=== PATIENT | female | born 1950 | race Caucasian/White ===

== ENCOUNTER → 2016-08-03 | Outpatient (CLI) | payer MEDICARE ==
--- NOTE | 2016-08-03 23:30 | WWHP ---
DATE OF DICTATION: 08/03/2016 CHIEF COMPLAINT: The patient is here for her routine gynecologic exam. HISTORY OF PRESENT ILLNESS: This is a 66-year-old G4, P3-0-1-3 with an LMP of 1998 who is status post vaginal hysterectomy for benign reasons. The patient is without gynecologic complaints. She previously saw Dr. Hull for her gynecologic care. PAST MEDICAL HISTORY: 1. Chronic hypertension. 2. Elevated cholesterol. 3. Rosacea. 4. Seasonal allergies. 5. Arthritis. 6. Osteopenia. Dr. Lockett is her primary care physician. MEDICATIONS: 1. Lisinopril with hydrochlorothiazide 1 daily. 2. Simvastatin 20 mg daily 5 days a week. 3. Fexofenadine 180 mg daily. 4. Metronidazole cream as directed. 5. Multivitamin daily. 6. Glucosamine 500 mg daily. 7. Aspirin 81 mg daily. 8. Fish oil omega-3 supplement daily. ALLERGIES: 1. SULFA, which caused some swelling, but this seemed to be a delayed reaction. 2. PHENOBARBITAL, which caused a rash. PAST SURGICAL HISTORY: 1. Vaginal hysterectomy with A and P repairs in 1998. 2. Left breast lump removed in 1996, which was benign. 3. Eye surgery in 2011. 4. Colonoscopy in 2015; this was her second one. PAST OB HISTORY: Three vaginal deliveries and one spontaneous . PAST AV SPECIALIST HISTORY: She had a vaginal hysterectomy with cystocele and rectocele repairs in 1998. This was for fibroid uterus prolapse and abnormal bleeding. She also states she had cryotherapy of the cervix in the past. She has no history of STDs. SOCIAL HISTORY: She denies tobacco and drug use and has 0 to 1 alcoholic drink per week. She has been since 1970. 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 She also watched 3 grandchildren that I delivered. FAMILY HISTORY: Father of lung cancer. Aunt had some type of female organ cancer, but she is uncertain of the type and the details. Mother had a pacemaker and also had diabetes. REVIEW OF SYSTEMS: She previously lost weight down to 168 pounds with [employer] but states she has gained it back gradually. She denies respiratory, cardiac or GI problems. She denies maltreatment or falling. She denies any significant problems with bladder leakage. PHYSICAL EXAM: Blood pressure 122/81. Height 5 feet 1-1/2 inches. Weight 185 pounds. Temperature 97.1. Pulse 104. This is a well-developed heavyset white female who is alert and oriented x3, in no acute distress. HEENT is within normal limits. NECK: Supple without mass or thyromegaly. CHEST AND LUNGS: Clear to auscultation. HEART: Regular rate and rhythm. Breasts are without mass or discharge. Axillary exam is negative for adenopathy. BACK: Negative for CVA tenderness. ABDOMEN: Soft, nontender, without palpable masses. PELVIC EXAM: External genitalia reveal mild to moderate atrophy without lesions. Vagina reveals mild to moderate atrophy without lesions. There is no evidence of prolapse. Bimanual exam is negative for mass or tenderness. Rectovaginal exam is negative for mass or tenderness and is negative for occult blood. Extremities are nontender. IMPRESSION: 1. A 66-year-old menopausal female, status post vaginal hysterectomy for benign reasons, with normal gynecologic exam. 2. History of osteopenia. PLAN: 1. Pap smears have been discontinued. 2. Self breast examination was discussed. 3. She states she will be due for her mammogram in the next 1 to 2 months, and she does this at [facility]. A slip was given to the patient for this. 4. Osteoporosis prevention was discussed. She had a bone density test done in 2016 which showed early osteopenia, according to the patient. Will plan on having her repeat this approximately 2 years after her last one. 5. She will return in one year.
== END | disposition home or self-care (01) ==
LOC: WWCWWP 09:34
PROVIDERS: ATTEND Obstetrics & Gynecology

== ENCOUNTER → 2017-11-21 | Outpatient (CLI) | payer MEDICARE ==
[2017-11-21 11:37] VITALS: BP 134/76; PULSE 94; TEMP 97.4; BMI 34.4
--- NOTE | 2017-11-21 12:16 | P.HPOB ---
History of Present Illness H&P Date: 11/21/17 Chief Complaint: The patient is here for her routine gynecologic exam. This is a 67-year-old with an LMP of 1998. The patient is status post vaginal hysterectomy for benign reasons. The patient is without gynecologic complaints. Review of Systems She has gained 3 pounds over the last year. She denies respiratory, cardiac and G.I. problems. She denies maltreatment or problems with falling. : she denies any significant problems with urinary leakage. Past Medical History Past Medical History: Hyperlipidemia, Hypertension Additional Past Medical History / Comment(s): Rosacea, seasonal allergies, arthritis, and osteopenia. 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 She had a cryotherapy of the cervix in the past. She has no history of STDs. History of Any Multi-Drug Resistant Organisms: None Reported Past Surgical History: Breast Surgery (Left breast lump. Benign.), Hysterectomy (Vaginal hysterectomy with anterior and posterior repairs in 1998.) Additional Past Surgical History / Comment(s): Colonoscopy in 2016 (2nd). Past Psychological History: No Psychological Hx Reported Smoking Status: Never smoker Past Alcohol Use History: Occasional (0 1 per week.) Past Drug Use History: None Reported Additional History: She is retired and has 6 grandchildren. She has been since 1970. - Past Family History Father Family Medical History: Cancer (Lung) Mother Family Medical History: AICD/Pacemaker, Diabetes Mellitus Medications and Allergies Home Medications Medication Instructions Recorded Confirmed Type Cholecalciferol (Vitamin D3) cap PO DAILY 11/21/17 History [Vitamin D3] Fexofenadine HCl [Marie Allergy] mg PO PRN 11/21/17 History Glucosamine Sulfate mg PO BID 11/21/17 History Lisinopril-Hctz 10-12.5 mg tab PO DAILY 11/21/17 History [Zestoretic 10-12.5] Simvastatin [Zocor] mg PO DAILY 11/21/17 History metroNIDAZOLE 0.75% CREAM applicator TOPICAL DAILY 11/21/17 History [Metrocream] Allergies Allergy/AdvReac Type Severity Reaction Status Date / Time phenobarbital Allergy Rash/Hives Verified 11/21/17 12:13 Sulfa (Sulfonamide AdvReac Swelling Verified 11/21/17 12:12 Antibiotics) Exam - Vital Signs Vital signs: Vital Signs Temp Pulse BP 11/21/17 11:33 97.4 F L 94 134/76 Intake and Output 11/20/17 11/21/17 11/21/17 22:59 06:59 14:59 Other: Weight 85.275 kg Height 5'2", BMI 34.4. This is a well-developed well-nourished white female who is alert and oriented times 3 in no acute distress. HEENT: Within normal limits. NECK: Supple without mass or thyromegaly. CHEST AND LUNGS: Clear to auscultation. HEART: Regular rate and rhythm. BREASTS: Are without mass or discharge. AXILLARY EXAM: Negative for adenopathy. BACK: Negative for CVA tenderness. ABDOMEN: Soft, nontender, without palpable masses. PELVIC EXAM: External genitalia appears normal with mild to moderate atrophy. Vagina appears normal to moderate atrophy. There is no evidence of prolapse. Bimanual examination is negative for mass or tenderness. RECTAL EXAM: Rectovaginal exam is negative for mass or tenderness and is negative for occult blood. EXTREMITIES: Nontender. IMPRESSION: 1. 67-year-old menopausal female status post vaginal hysterectomy for benign reasons with normal gynecologic exam. 2. History of osteopenia PLAN: 1. Pap smears have been discontinued. 2. Self breast awareness was discussed. 3. Mammogram will be due in one month. An order slip was given to the patient for this. She states she will do this at [facility]. 4. Osteoporosis prevention was discussed. We will plan on having her do a bone density test next year. 5. She states she is refusing all flu shots. 6. She will return in one year.
== END ==
LOC: WWCWWP 10:53
PROVIDERS: ATTEND Obstetrics & Gynecology
DX: Z53.9 Procedure and treatment not carried out, unspecified reason (principal)

== ENCOUNTER → 2019-01-22 | Outpatient (CLI) | payer MEDICARE ==
[2019-01-22 08:12] VITALS: BP 108/77; PULSE 101; RESP 18; TEMP 98.2; BMI 36.1
--- NOTE | 2019-01-22 08:58 | P.HPOB ---
History of Present Illness H&P Date: 01/22/19 Chief Complaint: The patient is here for her routine gynecologic exam. This is a 68 year old with an LMP of 1998. She is status post vaginal hysterectomy for benign reasons. She states she had slight vulvar irritation after taking antibiotics last month which has resolved. Review of Systems She is gained 4 pounds over the last year. She denies respiratory, cardiac and G.I. problems. She denies maltreatment or problems with falling. : she denies any significant problems with urinary leakage, but does urinate more frequently when she wakes up in the morning. Past Medical History Past Medical History: Hyperlipidemia, Hypertension Additional Past Medical History / Comment(s): Rosacea, seasonal allergies, arthritis, and osteopenia. Ulcerative colitis by colonoscopy. 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 She had a cryotherapy of the cervix in the past. She has no history of STDs. History of Any Multi-Drug Resistant Organisms: None Reported Past Surgical History: Breast Surgery, Hysterectomy Additional Past Surgical History / Comment(s): Colonoscopy in 2019 (3rd). Vaginal hysterectomy with A&P repairs in 1998. Left breast biopsy. Past Psychological History: No Psychological Hx Reported Smoking Status: Never smoker Past Alcohol Use History: Occasional (0-1 per week) Past Drug Use History: None Reported Additional History: She is retired and has 6 grandchildren. She has been since 1970. - Past Family History Father Family Medical History: Cancer Additional Family Medical History / Comment(s): Lung cancer. Mother Family Medical History: AICD/Pacemaker, Diabetes Mellitus Medications and Allergies Home Medications Medication Instructions Recorded Confirmed Type Cholecalciferol (Vitamin D3) 1 cap PO DAILY 11/21/17 01/22/19 History [Vitamin D3] Fexofenadine HCl [Marie Allergy] 1 mg PO DAILY PRN 11/21/17 01/22/19 History Glucosamine Sulfate 1 mg PO BID 11/21/17 01/22/19 History Lisinopril-Hctz 10-12.5 mg 1 tab PO DAILY 11/21/17 01/22/19 History [Zestoretic 10-12.5] Simvastatin [Zocor] 20 mg PO MOTUTHFRSA 11/21/17 01/22/19 History metroNIDAZOLE 0.75% CREAM 1 applicator TOPICAL DAILY 11/21/17 01/22/19 History [Metrocream] Aspirin 81 mg PO MOTUTHFRSA 01/22/19 01/22/19 History Mesalamine [Asacol Hd] 1,600 mg PO BID 01/22/19 01/22/19 History Multivitamin [Multivitamins Adult 1 each PO DAILY 01/22/19 01/22/19 History Gummies] Allergies Allergy/AdvReac Type Severity Reaction Status Date / Time aluminum Allergy Rash/Hives Unverified 01/22/19 08:21 nickel Allergy Rash/Hives Unverified 01/22/19 08:21 phenobarbital Allergy Rash/Hives Verified 01/22/19 08:14 titanium Allergy Rash/Hives Unverified 01/22/19 08:21 Sulfa (Sulfonamide AdvReac Swelling Verified 01/22/19 08:14 Antibiotics) Exam Vital Signs Temp Pulse Resp BP Pulse Ox 01/22/19 08:07 98.2 F 101 H 18 108/77 96 Intake and Output 01/21/19 01/22/19 01/22/19 22:59 06:59 14:59 Other: Weight 86.636 kg Height 5'1", weight 191 pounds, BMI 36.1. This is a well-developed well-nourished white female who is alert and oriented times 3 in no acute distress. HEENT: Within normal limits. NECK: Supple without mass or thyromegaly. CHEST AND LUNGS: Clear to auscultation. HEART: Regular rate and rhythm. BREASTS: Are without mass or discharge. AXILLARY EXAM: Negative for adenopathy. BACK: Negative for CVA tenderness. ABDOMEN: Soft, mildly obese, nontender, without palpable masses. PELVIC EXAM: External genitalia appears normal with mild atrophy. Vagina appears normal with mild atrophy. There is no evidence of prolapse. Bimanual examination is negative for mass or tenderness. RECTAL EXAM: Rectovaginal exam is negative for mass or tenderness and is negative for occult blood. EXTREMITIES: Nontender. IMPRESSION: 1. 68-year-old menopausal female status post vaginal hysterectomy for benign reasons with normal gynecologic exam. 2. History of osteopenia. PLAN: 1. Pap smears have have been discontinued. 2. Self breast awareness was discussed with the patient. 3. Screening mammogram will be done after 04/10/2019. The order slip was given to the patient for this. 4. Osteoporosis prevention was discussed. I have stressed the importance of adequate calcium, vitamin D and regular exercise. Recommended amounts of calcium and vitamin D were also discussed. I have recommended bone density testing. The order slip was given to the patient for this. She will probably have this done at the time of her mammogram. She states she will probably go to [facility] for these tests. 5. She does not get flu shots in the fall since she had a reaction to a flu shot years ago. 6. The patient was advised to return in 1-2 years for her well woman examination.
== END | disposition home or self-care (01) ==
LOC: WWCWWP 08:00
PROVIDERS: ATTEND Obstetrics & Gynecology
DX: Z53.9 Procedure and treatment not carried out, unspecified reason (principal)

== ENCOUNTER → 2020-11-18 | Outpatient (CLI) | payer MEDICARE ==
[2020-11-18 09:26] VITALS: BP 115/78; PULSE 92; RESP 18; TEMP 98.2
--- NOTE | 2020-11-18 10:29 | P.HPOB ---
History of Present Illness H&P Date: 11/18/20 Chief Complaint: The patient is here for her routine gynecologic exam. This is a 70-year-old with an LMP of 1998. She is status post vaginal hysterectomy for benign reasons. She has noticed some small painless lumps on the right labia majora. She is otherwise without gynecologic complaints. Review of Systems She is gained about 6 pounds over the past 1-1/2 years. She denies respiratory, cardiac and G.I. problems. She denies maltreatment or problems with falling. : she has infrequently had some leakage when she gets up in the morning if she does not get to the bathroom right away or if she bends down to pick something up in the morning. Past Medical History Past Medical History: Hyperlipidemia, Hypertension Additional Past Medical History / Comment(s): Rosacea, seasonal allergies, arthritis, and osteopenia. Ulcerative colitis by colonoscopy. 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 She had a cryotherapy of the cervix in the past. She has no history of STDs. History of Any Multi-Drug Resistant Organisms: None Reported Past Surgical History: Breast Surgery, Hysterectomy Additional Past Surgical History / Comment(s): Colonoscopy in 2019 (3rd). Vaginal hysterectomy with A&P repairs in 1998. Left breast biopsy. Past Psychological History: No Psychological Hx Reported Smoking Status: Never smoker Past Alcohol Use History: Occasional (3 or 4 per month) Past Drug Use History: None Reported Additional History: She is retired and has 6 grandchildren. She has been since 1970. - Past Family History Father Family Medical History: Cancer Additional Family Medical History / Comment(s): Lung cancer. Mother Family Medical History: AICD/Pacemaker, Diabetes Mellitus Daughter(s) Family Medical History: Cancer Additional Family Medical History / Comment(s): Rectal cancer. Medications and Allergies Home Medications Medication Instructions Recorded Confirmed Type Fexofenadine HCl [Marie Allergy] 1 mg PO DAILY PRN 11/21/17 11/18/20 History Lisinopril-Hctz 10-12.5 mg 1 tab PO DAILY 11/21/17 11/18/20 History [Zestoretic 10-12.5] metroNIDAZOLE 0.75% CREAM 1 applicator TOPICAL DAILY 11/21/17 11/18/20 History [Metrocream] Aspirin 81 mg PO MOTUTHFRSA 01/22/19 11/18/20 History Mesalamine [Asacol Hd] 1,600 mg PO BID 01/22/19 11/18/20 History Multivitamin [Multivitamins Adult 1 each PO DAILY 01/22/19 11/18/20 History Gummies] Calcium Carbonate [Tums] 500 mg PO DAILY PRN 11/18/20 11/18/20 History [place]-3 Fatty Acids/Fish Oil [Fish 1 each PO DAILY 11/18/20 11/18/20 History Oil 1,000 mg Softgel] Rosuvastatin [Crestor] 5 mg PO HS 11/18/20 11/18/20 History Ubidecarenone [Co Q-10] 100 mg PO DAILY 11/18/20 11/18/20 History Allergies Allergy/AdvReac Type Severity Reaction Status Date / Time aluminum Allergy Rash/Hives Unverified 11/18/20 09:13 nickel Allergy Rash/Hives Unverified 11/18/20 09:13 phenobarbital Allergy Rash/Hives Verified 11/18/20 09:13 titanium Allergy Rash/Hives Unverified 11/18/20 09:13 Sulfa (Sulfonamide AdvReac Swelling Verified 11/18/20 09:13 Antibiotics) Exam Vital Signs Temp Pulse Resp BP Pulse Ox 11/18/20 09:19 98.2 F 92 18 115/78 96 Intake and Output 11/17/20 11/18/20 11/18/20 22:59 06:59 14:59 Other: Weight 89.358 kg Height 5 feet 1-1/2 inches, weight 197 pounds, BMI 36.6. This is a well-developed well-nourished white female who is alert and oriented times 3 in no acute distress. HEENT: Within normal limits. NECK: Supple without mass or thyromegaly. CHEST AND LUNGS: Clear to auscultation. HEART: Regular rate and rhythm. BREASTS: Are without mass or discharge. AXILLARY EXAM: Negative for adenopathy. BACK: Negative for CVA tenderness. ABDOMEN: Soft, nontender, without palpable masses. PELVIC EXAM: External genitalia appears normal with mild atrophy. The right labia majora has 3 benign appearing inclusion cysts each measuring approximately 3-4 mm. These are nontender and noninflamed. Vagina appears normal with mild to moderate atrophy. There is no evidence of prolapse. Bimanual examination is negative for mass or tenderness. RECTAL EXAM: Rectovaginal exam is negative for mass or tenderness and is negative for occult blood. EXTREMITIES: Nontender. IMPRESSION: 1. 70-year-old menopausal female status post vaginal hysterectomy with benign- appearing small right labial inclusion cysts. Otherwise unremarkable gynecologic exam. 2. History of osteopenia. PLAN: 1. Pap smears have been discontinued. 2. Self breast awareness was discussed with the patient. 3. Screening mammogram will be due in approximately March of this year. She has them done at [facility]. The order slip was given to the patient for this. 4. Osteoporosis prevention was discussed. I have stressed the importance of adequate calcium, vitamin D and regular exercise. Recommended amounts of calcium and vitamin D were also discussed. Her last bone density test was done at [facility] uterine in 2018 or 2027. She has signed a records release so we can get her most recent bone density test result and we can then determine when her next one should be. 5. We have discussed weight control. She believes she has gained some weight during the Covid pandemic and she attributes this to decreased exercise and changes in her eating habits. I have stressed the importance of eating regular meals, getting adequate fiber and regular exercise. She is considering going back to [employer]. 6. She states she has an appointment to arrange for a colonoscopy which she states is due in December of this year. 7. She did complete her Covid vaccination series. She does not get flu shots because she had a reaction to flu shots in the past. 8. The patient was advised to return in 1 year for her well woman examination.
== END ==
LOC: WWCWWP 09:02
PROVIDERS: ATTEND Obstetrics & Gynecology
DX: Z01.419 Encounter for gynecological examination (general) (routine) without abnormal findings (principal); Z87.39 Personal history of other diseases of the musculoskeletal system and connective tissue; E78.5 Hyperlipidemia, unspecified; I10 Essential (primary) hypertension; Z90.710 Acquired absence of both cervix and uterus; Z88.2 Allergy status to sulfonamides; Z88.9 Allergy status to unspecified drugs, medicaments and biological substances; Z79.899 Other long term (current) drug therapy

== ENCOUNTER → 2021-05-11 | Outpatient (CLI) | payer MEDICARE ==
[2021-05-11 14:27] LABS: Basophils # (A) 0.06 X 10*3/uL (0.00-0.10); Basophils % (A) 0.8 %; Eosinophils # (A) 0.22 X 10*3/uL (0.04-0.35); HCT 37.9 % (37.2-46.3); HGB 12.1 g/dL (12.0-15.0); Lymphocytes # (A) 1.34 X 10*3/uL (0.90-5.00); Lymphocytes % (A) 18.1 %; MCH 29.8 pg (27.0-32.0); MCHC 31.9 g/dL (32.0-37.0); MCV 93.3 fL (80.0-97.0); Mean Platelet Volume 11.3 fL (9.5-12.2); Monocytes # (A) 0.57 X 10*3/uL (0.20-1.00); Monocytes % (A) 7.7 %; Neutrophils # (A) 5.16 X 10*3/uL (1.80-7.70); Neutrophils % (A) 69.9 %; Platelet Count 271 X 10*3/uL (140-440); RBC 4.06 X 10*6/uL (4.10-5.20); RDW 15.1 % (11.5-14.5); WBC 7.39 X 10*3/uL (4.50-10.00)
[2021-05-11 16:12] LABS: Albumin 3.9 g/dL (3.8-4.9); Albumin/Globulin Ratio 1.51 (1.60-3.17); Anion Gap 11.1 mmol/L (10.00-18.00); BUN/Creat Ratio 15.89 Ratio (12.00-20.00); Blood Urea Nitrogen 10.9 mg/dL (9.0-27.0); Carbon Dioxide 26.9 mmol/L (20.0-27.5); Globulin 2.6 g/dL (1.6-3.3); Non-African American GFR(CKD) 87.1 (60.0-200.0); Potassium 3.8 mmol/L (3.5-5.5); Total Bilirubin 0.4 mg/dL (0.30-1.20); Total Protein 6.4 g/dL (6.2-8.2)
== END | disposition home or self-care (01) ==
LOC: LABWHC1 09:46
PROVIDERS: ATTEND Internal Medicine Gastroenterology
DX: R89.4 Abnormal immunological findings in specimens from other organs, systems and tissues (principal)
CPT/HCPCS: 36415; 80053; 85025

== ENCOUNTER → 2021-06-10 | Outpatient (CLI) | payer MEDICARE ==
[2021-06-10 09:14] LABS: ALT 17 U/L (4-34); AST 24 U/L (14-36); African American GFR (CKD) >90 (>60 ml/min/1.73 sqM); Albumin 3.6 g/dL (3.5-5.0); Alkaline Phosphatase 78 U/L (38-126); Anion Gap 6 mmol/L; Basophils # (A) 0.1 k/uL (0-0.2); Basophils % (A) 1 %; Blood Urea Nitrogen 15 mg/dL (7-17); Calcium 9.1 mg/dL (8.4-10.2); Carbon Dioxide 26 mmol/L (22-30); Chloride 104 mmol/L (98-107); Eosinophils # (A) 0.3 k/uL (0-0.7); Eosinophils % (A) 4 %; Glucose 108 mg/dL (74-99); HCT 40.9 % (34.0-46.0); HGB 13.1 gm/dL (11.4-16.0); INR 0.9 (<1.2); Lymphocytes # (A) 1.2 k/uL (1.0-4.8); Lymphocytes % (A) 17 %; MCH 30.8 pg (25.0-35.0); MCHC 32.1 g/dL (31.0-37.0); MCV 95.9 fL (80.0-100.0); Mean Platelet Volume 7.9; Monocytes # (A) 0.3 k/uL (0-1.0); Monocytes % (A) 5 %; Neutrophils # (A) 5.1 k/uL (1.3-7.7); Neutrophils % (A) 71 %; Non-African American GFR(CKD) 80 (>60 ml/min/1.73 sqM); Platelet Count 244 k/uL (150-450); Potassium 4.1 mmol/L (3.5-5.1); RBC 4.26 m/uL (3.80-5.40); RDW 14.1 % (11.5-15.5); Sodium 136 mmol/L (137-145); Total Bilirubin 0.5 mg/dL (0.2-1.3); Total Protein 6.7 g/dL (6.3-8.2); WBC 7.1 k/uL (3.8-10.6)
[2021-06-10 10:01] LABS: Appearance,Urine Clear (Clear); Bilirubin,Urine Negative (Negative); Blood,Urine Negative (Negative); Color,Urine Yellow; Glucose,Urine (UA) Negative (Negative); Ketones,Urine Negative (Negative); Leukocyte Esterase,Urine Negative (Negative); Nitrite,Urine Negative (Negative); PH, Urine 5.5 (5.0-8.0); Protein,Urine Negative (Negative); Specific Gravity,Urine 1.016 (1.001-1.035); Urobilinogen,Urine <2.0 mg/dL (<2.0)
[2021-06-10 15:23] LABS: Chol/HDL Ratio 2.46 Ratio; LDL Cholesterol,Calculated 63.8 mg/dL (0.0-131.0)
== END | disposition home or self-care (01) ==
LOC: LABPAT 08:26
PROVIDERS: ATTEND Nurse Practitioner Adult Health
DX: Z00.00 Encounter for general adult medical examination without abnormal findings (principal); Z01.812 Encounter for preprocedural laboratory examination; I10 Essential (primary) hypertension; E78.5 Hyperlipidemia, unspecified; K51.90 Ulcerative colitis, unspecified, without complications; E66.9 Obesity, unspecified; M17.11 Unilateral primary osteoarthritis, right knee
CPT/HCPCS: 80053; 80061; 81003; 82306; 84443; 85025; 85610; 85730

== ENCOUNTER → 2021-10-19 | Outpatient (CLI) | payer MEDICARE ==
[2021-10-19 14:17] LABS: HCT 39.9 % (37.2-46.3); HGB 12.5 g/dL (12.0-15.0); MCH 29.6 pg (27.0-32.0); MCHC 31.3 g/dL (32.0-37.0); MCV 94.5 fL (80.0-97.0); Mean Platelet Volume 10.6 fL (9.5-12.2); Platelet Count 244 X 10*3/uL (140-440); RBC 4.22 X 10*6/uL (4.10-5.20); RDW 16.2 % (11.5-14.5); WBC 5.92 X 10*3/uL (4.50-10.00)
[2021-10-19 14:18] LABS: Basophils # (A) 0.08 X 10*3/uL (0.00-0.10); Basophils % (A) 1.4 %; Eosinophils # (A) 0.14 X 10*3/uL (0.04-0.35); Eosinophils % (A) 2.4 %; Immature Grans, Automated 0.3 %; Lymphocytes # (A) 1.16 X 10*3/uL (0.90-5.00); Lymphocytes % (A) 19.6 %; Monocytes # (A) 0.45 X 10*3/uL (0.20-1.00); Monocytes % (A) 7.6 %; NRBC Per 100 WBC 0 /100 WBCS (0.0-0.0); Neutrophils # (A) 4.07 X 10*3/uL (1.80-7.70); Neutrophils % (A) 68.7 %
[2021-10-19 15:58] LABS: African American GFR (CKD) 100.3 (60.0-200.0); Albumin 3.9 g/dL (3.8-4.9); Albumin/Globulin Ratio 1.46 (1.60-3.17); Anion Gap 9.9 mmol/L (10.00-18.00); BUN/Creat Ratio 16.76 Ratio (12.00-20.00); Blood Urea Nitrogen 11.5 mg/dL (9.0-27.0); Calcium 9.1 mg/dL (8.7-10.3); Carbon Dioxide 28.7 mmol/L (20.0-27.5); Globulin 2.7 g/dL (1.6-3.3); Non-African American GFR(CKD) 86.5 (60.0-200.0); Potassium 3.7 mmol/L (3.5-5.5); Total Bilirubin 0.4 mg/dL (0.30-1.20); Total Protein 6.5 g/dL (6.2-8.2)
== END | disposition home or self-care (01) ==
LOC: LABWHC1 08:23
PROVIDERS: ATTEND Internal Medicine Gastroenterology
DX: R89.4 Abnormal immunological findings in specimens from other organs, systems and tissues (principal)
CPT/HCPCS: 36415; 80053; 85025

== ENCOUNTER → 2022-04-19 | Outpatient (CLI) | payer MEDICARE ==
[2022-04-19 14:28] LABS: Basophils # (A) 0.07 X 10*3/uL (0.00-0.10); Basophils % (A) 1.1 %; Eosinophils # (A) 0.25 X 10*3/uL (0.04-0.35); Eosinophils % (A) 3.8 %; HCT 40.5 % (37.2-46.3); HGB 13.1 g/dL (12.0-15.0); Immature Grans, Automated 0.3 %; Lymphocytes % (A) 19.8 %; MCH 29.9 pg (27.0-32.0); MCHC 32.3 g/dL (32.0-37.0); MCV 92.5 fL (80.0-97.0); Mean Platelet Volume 11.1 fL (9.5-12.2); Monocytes # (A) 0.53 X 10*3/uL (0.20-1.00); Monocytes % (A) 8.1 %; NRBC Per 100 WBC 0 /100 WBCS (0.0-0.0); Neutrophils % (A) 66.9 %; Platelet Count 253 X 10*3/uL (140-440); RBC 4.38 X 10*6/uL (4.10-5.20); RDW 14.3 % (11.5-14.5); WBC 6.57 X 10*3/uL (4.50-10.00)
[2022-04-19 14:41] LABS: African American GFR (CKD) 100.1 (60.0-200.0); Albumin 3.9 g/dL (3.8-4.9); Albumin/Globulin Ratio 1.41 (1.60-3.17); Anion Gap 10.9 mmol/L (10.00-18.00); BUN/Creat Ratio 13.45 Ratio (12.00-20.00); Blood Urea Nitrogen 9.3 mg/dL (9.0-27.0); Calcium 8.9 mg/dL (8.7-10.3); Carbon Dioxide 26.4 mmol/L (20.0-27.5); Globulin 2.8 g/dL (1.6-3.3); Non-African American GFR(CKD) 86.4 (60.0-200.0); Potassium 3.6 mmol/L (3.5-5.5); Total Bilirubin 0.5 mg/dL (0.30-1.20); Total Protein 6.7 g/dL (6.2-8.2)
== END | disposition home or self-care (01) ==
LOC: LABWHC1 09:03
PROVIDERS: ATTEND Internal Medicine Gastroenterology
DX: R89.4 Abnormal immunological findings in specimens from other organs, systems and tissues (principal)
CPT/HCPCS: 36415; 80053; 85025

== ENCOUNTER → 2022-05-18 | Outpatient (CLI) | payer MEDICARE ==
[2022-05-18 09:31] VITALS: BP 117/79; PULSE 80; RESP 16; TEMP 98
--- NOTE | 2022-05-18 11:02 | P.HPOB ---
History of Present Illness H&P Date: 05/18/22 Chief Complaint: The patient is here for her routine gynecologic exam. This is a 71-year-old G for P3 013 with an LMP of 1998. She is status post vaginal hysterectomy with a and P repairs for benign reasons. The patient is without gynecologic complaints. She states last week she had an episode of urge incontinence when she got out of bed. She states she had the urge to urinate and could not get to the bathroom in time. She states she does occasionally get up to go to the bathroom at night, but this episode of urge incontinence was an isolated episode. She states she had a mammogram at [facility] in March 2022 and she received a letter stating that it was normal. Review of Systems She has lost about 14 pounds over the past year. Respiratory: She is getting over a cold. She denies cardiac or GI problems. Past Medical History Past Medical History: Hyperlipidemia, Hypertension Additional Past Medical History / Comment(s): Rosacea, seasonal allergies, arthritis, and osteopenia. Ulcerative colitis by colonoscopy. 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 She had a cryotherapy of the cervix in the past. She has no history of STDs. History of Any Multi-Drug Resistant Organisms: None Reported Past Surgical History: Breast Surgery, Hysterectomy, Joint Replacement Additional Past Surgical History / Comment(s): Colonoscopy in 2019 (3rd). Vaginal hysterectomy with A&P repairs in 1998. Left breast biopsy. Right knee replacement. Past Psychological History: No Psychological Hx Reported Smoking Status: Never smoker Past Alcohol Use History: Occasional (2 per month) Past Drug Use History: None Reported Additional History: She is retired and has 6 grandchildren. She has been since 1970. - Past Family History Father Family Medical History: Cancer Additional Family Medical History / Comment(s): Lung cancer. Mother Family Medical History: AICD/Pacemaker, Diabetes Mellitus Daughter(s) Family Medical History: Cancer Additional Family Medical History / Comment(s): Rectal cancer. Medications and Allergies Home Medications Medication Instructions Recorded Confirmed Type Fexofenadine HCl [Marie Allergy] 1 mg PO DAILY PRN 11/21/17 05/18/22 History Lisinopril-Hctz 10-12.5 mg 1 tab PO DAILY 11/21/17 05/18/22 History [Zestoretic 10-12.5] metroNIDAZOLE 0.75% CREAM 1 applicator TOPICAL DAILY 11/21/17 05/18/22 History [Metrocream 0.75%] Aspirin 81 mg PO MOTUTHFRSA 01/22/19 05/18/22 History Mesalamine [Asacol Hd] 1,600 mg PO BID 01/22/19 05/18/22 History Multivitamin [Multivitamins Adult 1 each PO DAILY 01/22/19 05/18/22 History Gummies] Calcium Carbonate [Tums] 500 mg PO DAILY PRN 11/18/20 05/18/22 History Rosuvastatin [Crestor] 5 mg PO HS 11/18/20 05/18/22 History Ubidecarenone [Co Q-10] 100 mg PO DAILY 11/18/20 05/18/22 History Allergies Allergy/AdvReac Type Severity Reaction Status Date / Time aluminum Allergy Rash/Hives Unverified 05/18/22 09:25 nickel Allergy Rash/Hives Unverified 05/18/22 09:25 phenobarbital Allergy Rash/Hives Verified 05/18/22 09:25 titanium Allergy Rash/Hives Unverified 05/18/22 09:25 Sulfa (Sulfonamide AdvReac Swelling Verified 05/18/22 09:25 Antibiotics) Exam Vital Signs Temp Pulse Resp BP Pulse Ox 05/18/22 09:27 98 F 80 16 117/79 97 Intake and Output 05/17/22 05/18/22 05/18/22 22:59 06:59 14:59 Other: Weight 83.007 kg Height 5 foot 1 inch, weight 183 pounds, BMI 34.6. This is a well-developed well-nourished white female who is alert and oriented times 3 in no acute distress. HEENT: Within normal limits. NECK: Supple without mass or thyromegaly. CHEST AND LUNGS: Clear to auscultation. HEART: Regular rate and rhythm. BREASTS: Are without mass or discharge. AXILLARY EXAM: Negative for adenopathy. BACK: Negative for CVA tenderness. ABDOMEN: Soft, nontender, without palpable masses. PELVIC EXAM: External genitalia appears normal with mild to moderate atrophy. Vagina appears normal with mild to moderate atrophy. There is no evidence of prolapse. Bimanual examination is negative for mass or tenderness. RECTAL EXAM: Rectovaginal exam is negative for mass or tenderness and is negative for occult blood. EXTREMITIES: Nontender. IMPRESSION: 1. 71-year-old menopausal female status post vaginal hysterectomy with a and P repairs for benign reasons, with normal gynecologic exam. 2. One episode of urge incontinence upon getting out of bed. No significant physical findings on exam today. 3. History of osteopenia. PLAN: 1. Pap smears have been discontinued. 2. Self breast awareness was discussed with the patient. We have also discussed symptoms associated with inflammatory breast cancer. 3. Screening mammogram was done in March 2022 at [facility] per the patient. The patient states she will get me her results letter. The order slip for her 2022 mammogram was given to the patient. 4. Osteoporosis prevention was discussed. I have stressed the importance of adequate calcium, vitamin D and regular exercise. Recommended amounts of calcium and vitamin D were also discussed. In order slip for a bone density test was given to the patient. She will probably have this done in 2022. 5. I have discussed kegal exercises with the patient. Also asked her to try to not let her bladder get too full. I have also recommended that she use the kegal exercise prior to getting up in the morning. She will call if problems. 6. She was advised to return in one year for her annual well woman exam.
== END ==
LOC: WWCWWP 09:15
PROVIDERS: ATTEND Obstetrics & Gynecology
DX: Z53.9 Procedure and treatment not carried out, unspecified reason (principal)

== ENCOUNTER → 2022-11-15 | Outpatient (CLI) | payer MEDICARE ==
[2022-11-15 15:33] LABS: Basophils # (A) 0.06 X 10*3/uL; Basophils % (A) 0.7 %; Eosinophils # (A) 0.32 X 10*3/uL; Eosinophils % (A) 3.8 %; HCT 42.7 %; HGB 13.6 d/dL; Lymphocytes # (A) 1.57 X 10*3/uL; Lymphocytes % (A) 18.6 %; MCH 30.2 pg; MCHC 31.9 d/dL; MCV 94.9 FL; Mean Platelet Volume 10.6 FL; Monocytes # (A) 0.64 X 10*3/uL; Monocytes % (A) 7.6 %; NRBC Per 100 WBC 0 X 10*3/uL; Neutrophils % (A) 68.8 %; Platelet Count 248 X 10*3/uL; RDW 14.6 %; WBC 8.43 X 10*3/uL
[2022-11-15 15:52] LABS: ALT 16 U/L; AST 20 U/L; Albumin 4.2 d/dL; Albumin/Globulin Ratio 1.68 Ratio; Alkaline Phosphatase 85 U/L; BUN/Creat Ratio 17.88 Ratio; Blood Urea Nitrogen 14.3 mg/dL; Calcium 9.7 mg/dL; Carbon Dioxide 27.3 mmol/L; Chloride 102 mmol/L; Globulin 2.5 d/dL; Glucose 92 mg/dL; Potassium 4.4 mmol/L; Sodium 140 mmol/L; Total Bilirubin 0.4 mg/dL; Total Protein 6.7 d/dL
== END | disposition home or self-care (01) ==
LOC: LABWHC1 10:23
PROVIDERS: ATTEND Internal Medicine Gastroenterology
DX: R89.4 Abnormal immunological findings in specimens from other organs, systems and tissues (principal)
CPT/HCPCS: 36415; 80053; 85025

== ENCOUNTER → 2023-05-23 | Outpatient (CLI) | payer MEDICARE ==
[2023-05-23 10:41] VITALS: BP 156/85; PULSE 96; RESP 16; TEMP 98.3
--- NOTE | 2023-05-23 11:46 | P.HPOB ---
History of Present Illness H&P Date: 05/23/23 Chief Complaint: The patient is here for her routine gynecologic exam. This is a 72-year-old with an LMP of 1998. The patient is status post vaginal hysterectomy with anterior and posterior repairs for benign reasons. She is without gynecologic complaints. Review of Systems The patient's weight has been stable over the last year. She denies respiratory, cardiac, or G.I. problems. Past Medical History Past Medical History: Hyperlipidemia, Hypertension Additional Past Medical History / Comment(s): Rosacea, seasonal allergies, arthritis, and osteopenia. Ulcerative colitis by colonoscopy. 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 She had a cryotherapy of the cervix in the past. She has no history of STDs. History of Any Multi-Drug Resistant Organisms: None Reported Past Surgical History: Breast Surgery, Hysterectomy, Joint Replacement Additional Past Surgical History / Comment(s): Colonoscopy in 2019 (3rd). Vaginal hysterectomy with A&P repairs in 1998. Left breast biopsy. Right knee replacement. Past Psychological History: No Psychological Hx Reported Smoking Status: Never smoker Past Alcohol Use History: Occasional Past Drug Use History: None Reported Additional History: She is retired and has several grandchildren. She has been since 1970. - Past Family History Father Family Medical History: Cancer Additional Family Medical History / Comment(s): Lung cancer. Mother Family Medical History: AICD/Pacemaker, Diabetes Mellitus Daughter(s) Family Medical History: Cancer Additional Family Medical History / Comment(s): Rectal cancer. Medications and Allergies Home Medications Medication Instructions Recorded Confirmed Type Fexofenadine HCl [Marie Allergy] 1 mg PO DAILY PRN 11/21/17 05/23/23 History Lisinopril-Hctz 10-12.5 mg 1 tab PO DAILY 11/21/17 05/23/23 History [Zestoretic 10-12.5] metroNIDAZOLE 0.75% CREAM 1 applicator TOPICAL DAILY 11/21/17 05/23/23 History [Metrocream 0.75%] Aspirin 81 mg PO MOTUTHFRSA 01/22/19 05/23/23 History Mesalamine [Asacol Hd] 1,600 mg PO BID 01/22/19 05/23/23 History Multivitamin [Multivitamins Adult 1 each PO DAILY 01/22/19 05/23/23 History Gummies] Calcium Carbonate [Tums] 500 mg PO DAILY PRN 11/18/20 05/23/23 History Rosuvastatin [Crestor] 5 mg PO HS 11/18/20 05/23/23 History Ubidecarenone [Co Q-10] 100 mg PO DAILY 11/18/20 05/23/23 History Allergies Allergy/AdvReac Type Severity Reaction Status Date / Time aluminum Allergy Rash/Hives Unverified 05/23/23 10:25 nickel Allergy Rash/Hives Unverified 05/23/23 10:25 phenobarbital Allergy Rash/Hives Verified 05/23/23 10:25 titanium Allergy Rash/Hives Unverified 05/23/23 10:25 Sulfa (Sulfonamide AdvReac Swelling Verified 05/23/23 10:25 Antibiotics) Exam Vital Signs Temp Pulse Resp BP Pulse Ox 05/23/23 10:26 98.3 F 96 16 156/85 97 Intake and Output 05/22/23 05/23/23 05/23/23 22:59 06:59 14:59 Other: Weight 82.554 kg Height 5 foot 1 inch, weight 182 pounds, BMI 34.4. This is a well-developed well-nourished white female who is alert and oriented times 3 in no acute distress. HEENT: Within normal limits. NECK: Supple without mass or thyromegaly. CHEST AND LUNGS: Clear to auscultation. HEART: Regular rate and rhythm. BREASTS: Are without mass or discharge. AXILLARY EXAM: Negative for adenopathy. BACK: Negative for CVA tenderness. ABDOMEN: Soft, nontender, without palpable masses. PELVIC EXAM: External genitalia appears normal with mild to moderate atrophy. Vagina appears normal with mild atrophy. There is no evidence of prolapse. Bimanual examination is negative for mass or tenderness. RECTAL EXAM: Rectovaginal exam is negative for mass or tenderness and is negative for occult blood. EXTREMITIES: Nontender. IMPRESSION: 1. 72-year-old menopausal female status post vaginal hysterectomy for benign reasons, with normal gynecologic exam. 2. History of osteopenia. PLAN: 1. Pap smears have been discontinued. 2. Self breast awareness was discussed with the patient. We have also discussed symptoms associated with inflammatory breast cancer. 3. Screening mammogram was done on 05/18/2023 at [facility] and was benign. She will repeat this after 1 year. 4. Osteoporosis prevention was discussed. I have stressed the importance of adequate calcium, vitamin D and regular exercise. Recommended amounts of calcium and vitamin D were also discussed. She had a bone density test showing osteopenia on 05/18/2023 at [facility]. She will repeat this in 2-3 years. 5. She has an appointment to see her channel sales manager, Dr. Rivera, for possible colonoscopy next month. 6. She was advised to return in one year for her annual well woman exam.
== END ==
LOC: WWCWWP 10:21
PROVIDERS: ATTEND Obstetrics & Gynecology
DX: I10 Essential (primary) hypertension (principal); E78.5 Hyperlipidemia, unspecified; Z90.710 Acquired absence of both cervix and uterus; Z96.60 Presence of unspecified orthopedic joint implant; Z78.0 Asymptomatic menopausal state; M85.80 Other specified disorders of bone density and structure, unspecified site; Z96.651 Presence of right artificial knee joint; Z88.2 Allergy status to sulfonamides; Z91.048 Other nonmedicinal substance allergy status; Z91.018 Allergy to other foods; Z88.3 Allergy status to other anti-infective agents; Z79.82 Long term (current) use of aspirin

== ENCOUNTER → 2023-06-20 | Outpatient (CLI) | payer MEDICARE ==
[2023-06-20 15:14] LABS: ALT 15 U/L (8-44); AST 18 U/L (13-35); Alkaline Phosphatase 78 U/L (41-126); BUN/Creat Ratio 13.86 Ratio (12.00-20.00); Blood Urea Nitrogen 9.7 mg/dL (9.0-27.0); Calcium 9.3 mg/dL (8.7-10.3); Carbon Dioxide 27.2 mmol/L (21.6-31.8); Chloride 101 mmol/L (96-109); Globulin 2.5 g/dL (1.6-3.3); Glucose 88 mg/dL (70-110); Potassium 3.9 mmol/L (3.5-5.5); Sodium 140 mmol/L (135-145); Total Bilirubin 0.3 mg/dL (0.3-1.2); Total Protein 6.5 g/dL (6.2-8.2)
== END | disposition home or self-care (01) ==
LOC: LABWHC1 10:54
PROVIDERS: ATTEND Internal Medicine Gastroenterology
DX: R89.4 Abnormal immunological findings in specimens from other organs, systems and tissues (principal)
CPT/HCPCS: 36415; 80053

== ENCOUNTER → 2023-12-19 | Outpatient (CLI) | payer MEDICARE ==
[2023-12-19 17:35] LABS: ALT 17 U/L (8-44); AST 24 U/L (13-35); Albumin 4.1 g/dL (3.8-4.9); Albumin/Globulin Ratio 1.64 Ratio (1.60-3.17); Alkaline Phosphatase 75 U/L (41-126); BUN/Creat Ratio 12.57 Ratio (12.00-20.00); Blood Urea Nitrogen 8.8 mg/dL (9.0-27.0); Calcium 9.1 mg/dL (8.7-10.3); Carbon Dioxide 26.1 mmol/L (21.6-31.8); Chloride 100 mmol/L (96-109); Globulin 2.5 g/dL (1.6-3.3); Glucose 91 mg/dL (70-110); Potassium 3.8 mmol/L (3.5-5.5); Sodium 140 mmol/L (135-145); Total Bilirubin 0.3 mg/dL (0.3-1.2); Total Protein 6.6 g/dL (6.2-8.2)
== END | disposition home or self-care (01) ==
LOC: LABWHC1 10:46
PROVIDERS: ATTEND Nurse Practitioner Family
DX: R89.4 Abnormal immunological findings in specimens from other organs, systems and tissues (principal)
CPT/HCPCS: 36415; 80053

== ENCOUNTER → 2024-06-25 | Outpatient (CLI) | payer MEDICARE ==
[2024-06-25 12:55] VITALS: BP 161/80; PULSE 101; RESP 16; TEMP 98.3
--- NOTE | 2024-06-25 13:25 | P.HPOB ---
History of Present Illness H&P Date: 06/25/24 Chief Complaint: The patient is here for her routine gynecologic exam. This is a 73-year-old -0-1-3 with an LMP of 1998. The patient is status post vaginal hysterectomy for benign reasons. She recently had a benign mammogram done on 05/28/2024 at [facility]. She has brought her letter indicating it was a normal exam. She is without gynecologic complaints. Review of Systems The patient has gained 10 pounds over the last year. She attributes some of the weight gain to being less mobile because of knee problems. She is planning on left knee replacement in the near future. She denies respiratory, cardiac, or G.I. problems. Past Medical History Past Medical History: Hyperlipidemia, Hypertension Additional Past Medical History / Comment(s): Rosacea, seasonal allergies, arthritis, and osteopenia. Ulcerative colitis by colonoscopy. 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 She had a cryotherapy of the cervix in the past. She has no history of STDs. History of Any Multi-Drug Resistant Organisms: None Reported Past Surgical History: Breast Surgery, Hysterectomy, Joint Replacement Additional Past Surgical History / Comment(s): Colonoscopy in 2019 (3rd). Vaginal hysterectomy with A&P repairs in 1998. Left breast biopsy. Right knee replacement. Past Psychological History: No Psychological Hx Reported Smoking Status: Never smoker Past Alcohol Use History: Occasional (2 drinks per month.) Past Drug Use History: None Reported Additional History: She has been since 1970. She has several grandch ildren and is retired. - Past Family History Father Family Medical History: Cancer Additional Family Medical History / Comment(s): Lung cancer. Mother Family Medical History: AICD/Pacemaker, Diabetes Mellitus Daughter(s) Family Medical History: Cancer Additional Family Medical History / Comment(s): Rectal cancer. Medications and Allergies Home Medications Medication Instructions Recorded Confirmed Type Fexofenadine HCl [Marie Allergy] 1 mg PO DAILY PRN 11/21/17 05/23/23 History Lisinopril-Hctz 10-12.5 mg 1 tab PO DAILY 11/21/17 05/23/23 History [Zestoretic 10-12.5] metroNIDAZOLE 0.75% CREAM 1 applicator TOPICAL DAILY 11/21/17 05/23/23 History [Metrocream 0.75%] Aspirin 81 mg PO MOTUTHFRSA 01/22/19 05/23/23 History Mesalamine [Asacol Hd] 1,600 mg PO BID 01/22/19 05/23/23 History Multivitamin [Multivitamins Adult 1 each PO DAILY 01/22/19 05/23/23 History Gummies] Calcium Carbonate [Tums] 500 mg PO DAILY PRN 11/18/20 05/23/23 History Rosuvastatin [Crestor] 5 mg PO HS 11/18/20 05/23/23 History Ubidecarenone [Co Q-10] 100 mg PO DAILY 11/18/20 05/23/23 History Allergies Allergy/AdvReac Type Severity Reaction Status Date / Time aluminum Allergy Rash/Hives Unverified 06/25/24 12:53 nickel Allergy Rash/Hives Unverified 06/25/24 12:53 phenobarbital Allergy Rash/Hives Verified 06/25/24 12:53 titanium Allergy Rash/Hives Unverified 06/25/24 12:53 Sulfa (Sulfonamide AdvReac Swelling Verified 06/25/24 12:53 Antibiotics) Exam Vital Signs Temp Pulse Resp BP Pulse Ox 06/25/24 12:53 98.3 F 101 H 16 161/80 97 Intake and Output 06/24/24 06/25/24 06/25/24 22:59 06:59 14:59 Other: Weight 87.09 kg Height 5 foot 1 inch, weight 192 pounds, BMI 37.5. This is a well-developed well-nourished white female who is alert and oriented times 3 in no acute distress. HEENT: Within normal limits. NECK: Supple without mass or thyromegaly. CHEST AND LUNGS: Clear to auscultation. HEART: Regular rate and rhythm. BREASTS: Are without mass or discharge. AXILLARY EXAM: Negative for adenopathy. BACK: Negative for CVA tenderness. ABDOMEN: Soft, nontender, without palpable masses. PELVIC EXAM: External genitalia appears normal mild to moderate atrophy. Vagina appears normal mild to moderate atrophy. There is no evidence of prolapse. Bimanual examination is negative for mass or tenderness. RECTAL EXAM: Rectovaginal exam is negative for mass or tenderness and is negative for occult blood. EXTREMITIES: Nontender. IMPRESSION: 1. 73-year-old menopausal female status post vaginal hysterectomy for benign reasons, with normal gynecologic exam. 2. History of osteopenia. PLAN: 1. Pap smears have been discontinued. 2. Self breast awareness was discussed with the patient. We have also discussed symptoms associated with inflammatory breast cancer. 3. Screening mammogram was done on 05/28/2024 at [facility] and was benign. She will repeat this after 1 year. An order slip was given to her for her next mammogram to be done in May. 4. Osteoporosis prevention was discussed. I have stressed the importance of adequate calcium, vitamin D and regular exercise. Recommended amounts of calcium and vitamin D were also discussed. Last bone density test was on 05/18/2023. I have recommended that she repeat this in May 2025. The order slip was given to the patient for this. 5. She was advised to return in one year for her annual well woman exam.
== END ==
LOC: WWCWWP 12:16
PROVIDERS: ATTEND Obstetrics & Gynecology
DX: Z78.0 Asymptomatic menopausal state (principal); Z90.710 Acquired absence of both cervix and uterus; M85.80 Other specified disorders of bone density and structure, unspecified site; Z88.8 Allergy status to other drugs, medicaments and biological substances; Z88.2 Allergy status to sulfonamides; Z91.09 Other allergy status, other than to drugs and biological substances

== ENCOUNTER → 2024-06-25 | Outpatient (CLI) | payer MEDICARE ==
[2024-06-25 20:17] LABS: ALT 19 U/L (8-44); AST 25 U/L (13-35); Albumin 4.1 g/dL (3.8-4.9); Albumin/Globulin Ratio 1.52 Ratio (1.60-3.17); Alkaline Phosphatase 79 U/L (41-126); BUN/Creat Ratio 19.57 Ratio (12.00-20.00); Blood Urea Nitrogen 13.7 mg/dL (9.0-27.0); Calcium 9.1 mg/dL (8.7-10.3); Carbon Dioxide 26.7 mmol/L (21.6-31.8); Chloride 100 mmol/L (96-109); Globulin 2.7 g/dL (1.6-3.3); Glucose 89 mg/dL (70-110); Potassium 3.9 mmol/L (3.5-5.5); Sodium 138 mmol/L (135-145); Total Bilirubin 0.3 mg/dL (0.3-1.2); Total Protein 6.8 g/dL (6.2-8.2)
== END | disposition home or self-care (01) ==
LOC: LABWHC1 13:31
PROVIDERS: ATTEND Internal Medicine Gastroenterology
DX: R89.4 Abnormal immunological findings in specimens from other organs, systems and tissues (principal)
CPT/HCPCS: 36415; 80053

== ENCOUNTER → 2024-12-16 | Outpatient (CLI) | payer MEDICARE ==
[2024-12-16 21:03] LABS: ALT 17 U/L (8-44); AST 24 U/L (13-35); Albumin 4.0 g/dL (3.8-4.9); Albumin/Globulin Ratio 1.54 Ratio (1.60-3.17); Alkaline Phosphatase 80 U/L (41-126); Anion Gap 11.90 mmol/L (4.00-12.00); BUN/Creat Ratio 10.71 Ratio (12.00-20.00); Blood Urea Nitrogen 7.5 mg/dL (9.0-27.0); Calcium 9.0 mg/dL (8.7-10.3); Carbon Dioxide 26.1 mmol/L (21.6-31.8); Chloride 96 mmol/L (96-109); Globulin 2.6 g/dL (1.6-3.3); Glucose 112 mg/dL (70-110); Potassium 3.3 mmol/L (3.5-5.5); Sodium 134 mmol/L (135-145); Total Protein 6.6 g/dL (6.2-8.2)
== END | disposition home or self-care (01) ==
LOC: LABWHC1 13:33
PROVIDERS: ATTEND Internal Medicine Gastroenterology
DX: R89.4 Abnormal immunological findings in specimens from other organs, systems and tissues (principal)
CPT/HCPCS: 36415; 80053